=== PATIENT | female | born 2000 | race Two or more races ===

== ENCOUNTER → 2024-06-14 15:04 | Outpatient (REF) | payer BC, SELFPAY | LOC: WDC 15:04 | PROVIDERS: ATTENDING PHYSICIAN Obstetrics & Gynecology Gynecology; FAMILY PHYSICIAN Internal Medicine | DX: N63.20 Unspecified lump in the left breast, unspecified quadrant (principal) | CPT/HCPCS: 76642 ==

== ENCOUNTER → 2024-09-20 11:25 | Outpatient (REF) | payer BC, SELFPAY | LOC: CLAB 11:25 | PROVIDERS: ATTENDING PHYSICIAN Surgery | DX: N63.11 Unspecified lump in the right breast, upper outer quadrant (principal) | CPT/HCPCS: 88305; 88307 ==

== ENCOUNTER → 2024-11-07 09:14 | Outpatient (REF) | payer BC, SELFPAY | LOC: RAD 09:14 | PROVIDERS: ATTENDING PHYSICIAN Nurse Practitioner Adult Health | DX: R30.0 Dysuria (principal); R10.2 Pelvic and perineal pain; R10.84 Generalized abdominal pain; R11.0 Nausea | CPT/HCPCS: 76700; 76770 ==

== ENCOUNTER → 2025-01-06 12:29 | Outpatient (REF) | payer BC, SELFPAY | LOC: RAD 12:29 | PROVIDERS: ATTENDING PHYSICIAN Nurse Practitioner; FAMILY PHYSICIAN Nurse Practitioner Adult Health | DX: N13.39 Other hydronephrosis (principal) | CPT/HCPCS: 74178; Q9967 ==

== ENCOUNTER 2025-03-07 13:37 | Outpatient (RCR) | payer BC, SELFPAY | END 2025-03-07 23:59 | disposition home or self-care (01) | LOC: RPT 13:37 | PROVIDERS: ATTENDING PHYSICIAN Nurse Practitioner; FAMILY PHYSICIAN Internal Medicine | DX: I86.2 Pelvic varices (principal); Z73.6 Limitation of activities due to disability | CPT/HCPCS: 97110; 97161; 97530 ==

== ENCOUNTER 2025-04-25 16:59 | Outpatient (RCR) | payer BC, SELFPAY | END 2025-04-25 23:59 | disposition home or self-care (01) | LOC: RPT 16:59 | PROVIDERS: ATTENDING PHYSICIAN Nurse Practitioner; FAMILY PHYSICIAN Internal Medicine | DX: I86.2 Pelvic varices (principal); Z73.6 Limitation of activities due to disability | CPT/HCPCS: 97110; 97112; 97530 ==

== ENCOUNTER 2025-05-30 17:08 | Outpatient (RCR) | payer BC, SELFPAY | END 2025-05-30 23:59 | disposition home or self-care (01) | LOC: RPT 17:08 | PROVIDERS: ATTENDING PHYSICIAN Nurse Practitioner; FAMILY PHYSICIAN Internal Medicine | DX: I86.2 Pelvic varices (principal); Z73.6 Limitation of activities due to disability; M99.05 Segmental and somatic dysfunction of pelvic region; M62.81 Muscle weakness (generalized) | CPT/HCPCS: 97110; 97112; 97140; 97530 ==

== ENCOUNTER 2025-06-29 17:28 | Outpatient (RCR) | payer BC, SELFPAY | END 2025-06-29 23:59 | disposition home or self-care (01) | LOC: RPT 17:28 | PROVIDERS: ATTENDING PHYSICIAN Nurse Practitioner; FAMILY PHYSICIAN Internal Medicine | DX: I86.2 Pelvic varices (principal); M99.05 Segmental and somatic dysfunction of pelvic region; M62.81 Muscle weakness (generalized); Z73.6 Limitation of activities due to disability | CPT/HCPCS: 97014; 97110; 97112 ==

== ENCOUNTER 2025-07-18 10:27 | Outpatient (RCR) | payer BC, SELFPAY | END 2025-08-04 06:31 | disposition home or self-care (01) | LOC: RPT 10:27 | PROVIDERS: ATTENDING PHYSICIAN Nurse Practitioner; FAMILY PHYSICIAN Internal Medicine | DX: I86.2 Pelvic varices (principal); M99.05 Segmental and somatic dysfunction of pelvic region; M62.81 Muscle weakness (generalized); Z73.6 Limitation of activities due to disability | CPT/HCPCS: 97110; 97112; 97140; 97530 ==